=== PATIENT | male | born 1995 | race Caucasian/White ===

== ENCOUNTER 2017-05-25 19:15 | Emergency (ER) | payer BC ==
--- NOTE | 2017-05-25 21:27 | RAD ---
INDICATION: Right thumb laceration. TECHNIQUE: 3 views of the right thumb were obtained. FINDINGS: The bones are normal alignment. No fracture or radiopaque foreign body is seen. Joint spaces appear maintained. IMPRESSION: NO EVIDENCE FOR FRACTURE.
[2017-05-25] MEDS ORDERED: Tetan/Diph/Pertus SYR(Tdap)* 0.5 ML SYR(BOOSTRIX) use SYR IM ONE (21:35)
--- NOTE | 2017-05-25 21:36 | ED ---
Laceration/Wound HPI - HPI Summary HPI Summary: 21M presents with right finger laceration s/p cutting it on a pineapple slicer. He still has sensation. He denies any numbness or tingling. He does not know when last tetanus was. He has minimal pain except when area bumped. - History of Current Complaint Stated Complaint: RT THUMB LAC Time Seen by Provider: 05/25/17 19:59 Pain Intensity: 0 - Allergy/Home Medications Allergies/Adverse Reactions: Allergies Allergy/AdvReac Type Severity Reaction Status Date / Time No Known Allergies Allergy Verified 05/25/17 19:32 PMH/Surg Hx/FS Hx/Imm Hx Endocrine/Hematology History: Denies: Hx Anticoagulant Therapy Cardiovascular History: Denies: Hx Hypertension Infectious Disease History: No Infectious Disease History: Denies: Traveled Outside the [place] in Last 30 Days - Family History Known Family History: Negative: Cardiac Disease - Social History Alcohol Use: None Substance Use Type: Reports: None Smoking Status (MU): Never Smoked Tobacco Review of Systems Negative: Fever Negative: Chest Pain Negative: Shortness Of Breath Positive: Other - right thumb lac All Other Systems Reviewed And Are Negative: Yes Physical Exam Triage Information Reviewed: Yes Vital Signs On Initial Exam: Initial Vitals Temp Pulse Resp BP Pulse Ox 97.6 F 105 16 135/68 100 05/25/17 19:33 05/25/17 19:33 05/25/17 19:33 05/25/17 19:33 05/25/17 19:33 Vital Signs Reviewed: Yes Appearance: Positive: Well-Appearing Skin: Positive: Other - 2cm circular laceration of distal tip of right thumb near end of nail Head/Face: Positive: Normal Head/Face Inspection Eyes: Positive: Normal, Conjunctiva Clear Respiratory/Lung Sounds: Positive: Clear to Auscultation, Breath Sounds Present Cardiovascular: Positive: Normal, RRR Musculoskeletal: Positive: Strength/ROM Intact - right thumb, Other - good pulses, capillary refill<2 secs Procedures - Laceration/Wound Repair 1 Location: Other - thumb Description: Irregular Length, Depth and Shape: 2cm circular Irrigated w/ Saline (ccs): 200 Closure: Skin Adhesive Diagnostics - Vital Signs Vital Signs Temp Pulse Resp BP Pulse Ox 05/25/17 20:09 98.5 F 61 14 118/64 99 05/25/17 19:33 97.6 F 105 16 135/68 100 - Laboratory Lab Statement: Any lab studies that have been ordered have been reviewed, and results considered in the medical decision making process. Laceration Repair Course/Dx - Course Course Of Treatment: 21M presents with right finger laceration s/p cutting it on a pineapple slicer. He still has sensation. He denies any numbness or tingling. he does not know when last tetanus was. He has minimal pain except when area bumped. on exam almost complete avulsion still has sensation but area is white so explained may not take. discussed and patient would like glue so glued area. patient understands and agrees with plan. - Differential Dx Differental Diagnoses: Abrasion, Avulsion, Laceration - Clinical Impression Provider Diagnoses: Laceration of right thumb Discharge - Discharge Plan Condition: Good Disposition: HOME Patient Education Materials: Care For Your Stitches (ED) Referrals: Non Staff,Doctor [Primary Care Provider] - Additional Instructions: Place ice on area Take Tylenol for pain as needed every 6 hours Glue will fall off on own Avoid scrubbing area Return to ED if develop any signs of infection or any new or worsening symptoms
[2017-05-25 22:10] VITALS: BP 99/60
== END 2017-05-25 22:11 | disposition home or self-care (01) ==
LOC: ED 19:15
DX: S61.011A Laceration without foreign body of right thumb without damage to nail, initial encounter (principal); W45.8XXA Other foreign body or object entering through skin, initial encounter; Y93.G3 Activity, cooking and baking; Y92.89 Other specified places as the place of occurrence of the external cause
CPT/HCPCS: 90471; 90715; 99283